=== PATIENT | female | born 1985 | race Two or more races ===

== ENCOUNTER 2024-01-14 06:59 | Emergency (ER) | payer OTHER ==
[~2024-01-14] VITALS: Ht 162.6 cm; Wt 75.7 kg
[2024-01-14] MEDS ORDERED: PRENA1 TRUE CO1 EACH PO (07:10)
[2024-01-14 08:19] LABS: HEMATOCRIT 40.6 % (36.0-45.00); HEMOGLOBIN 14.3 g/dL (12.0-15.00); MEAN CORPUSCULAR HEMOGLOBIN 31.7 pg (27.00-32.0); MEAN CORPUSCULAR HGB CONC 35.3 g/dl (32.0-36.0); PLATELET COUNT 245 K/uL (150-450); RED BLOOD COUNT 4.52 M/uL (4.00-6.00); RED CELL DISTRIBUTION WIDTH 13.2 % (11.5-14.5)
[2024-01-14 08:19] LABS: URINE APPEARANCE Clear; URINE BILIRRUBIN Negative (NEGATIVE); URINE BLOOD Negative; URINE COLOR Yellow; URINE GLUCOSE Negative (NEGATIVE); URINE LEUKOCYTE Negative; URINE NITRATE Negative; URINE PROTEIN Negative (NEGATIVE); URINE UROBILINOGEN 0.2 E.U./dl
[2024-01-14 08:21] LABS: URINE BACTERIA 113.3 uL (0.0-1933); URINE EPITHELIAL CELLS 4.4 uL (0.0-38.8); URINE RBC 13.6 uL (0.0-20.8); URINE WBC 2.4 uL (0.0-23.2)
[2024-01-14 08:49] LABS: INR 0.97; PARTIAL THROMBOPLASTIN TIME 27.1 SECONDS (22.0-34.0); PROTHROMBIN TIME 10.2 SECONDS (9.0-11.5)
[2024-01-14 08:55] LABS: CALCIUM 8.9 mg/dL (8.5-10.1); CREATININE SERUM 0.71 mg/dL (0.55-1.02); GFR 92.13; POTASSIUM 3.93 mEq/L (3.5-5.1)
== END 2024-01-14 13:53 | disposition home or self-care (01) ==
LOC: ER 06:59
PROVIDERS: General Practice
DX: O26.891 Other specified pregnancy related conditions, first trimester (principal); Z3A.01 Less than 8 weeks gestation of pregnancy; R58 Hemorrhage, not elsewhere classified

== ENCOUNTER → 2025-05-16 | Emergency (ER) | payer OTHER ==
[~2025-05-16] VITALS: Ht 165.1 cm; Wt 73.9 kg
[~2025-05-16] MED LIST: KETOROLAC TROMETHAMINE 30 MG VIAL IM STA; KETOROLAC TROMETHAMINE 30 MG VIAL ONE; ORPHENADRINE CITRATE 30 MG/ML AMPUL IM STA; ORPHENADRINE CITRATE 30 MG/ML AMPUL ONE; PRENA1 TRUE CO1 EACH PO
[2025-05-16 17:40] LABS: BASO % 0.6 % (0.1-1.2); EOS # 0.06 (0.04-0.54); EOS % 1.1 % (0.7-7.0); HEMATOCRIT 37.2 % (34.1-44.9); HEMOGLOBIN 13.2 g/dL (11.2-15.7); LYMPH % 28.4 % (19.3-53.1); MEAN CORPUSCULAR HEMOGLOBIN 30.9 pg (25.6-32.2); MONO % 7.6 % (4.7-12.5); NEUT # 3.27 (1.56-6.13); NEUT % 61.9 % (34.0-71.1); PLATELET COUNT 256 K/uL (163-369); RED BLOOD COUNT 4.27 M/uL (3.93-5.22); RED CELL DISTRIBUTION WIDTH 12.1 % (11.6-14.4)
[2025-05-16 17:41] LABS: PH,URINE 7.5 (5.0-8.0); URINE APPEARANCE Clear; URINE BILIRRUBIN Negative (NEGATIVE); URINE BLOOD Negative; URINE COLOR Yellow; URINE GLUCOSE Negative (NEGATIVE); URINE KETONE Negative (NEGATIVE); URINE LEUKOCYTE Negative; URINE NITRATE Negative; URINE PROTEIN Negative (NEGATIVE); URINE UROBILINOGEN 0.2 E.U./dl
[2025-05-16 17:42] LABS: URINE BACTERIA 297.2 uL (0.0-1933); URINE EPITHELIAL CELLS 11.3 uL (0.0-38.8); URINE RBC 4.5 uL (0.0-20.8); URINE WBC 3.9 uL (0.0-23.2)
[2025-05-16 17:43] LABS: TYPE CELLS SQUAMOUS
[2025-05-16 18:35] LABS: ALBUMIN 3.9 gm/dL (3.4-5.0); BILIRUBIN TOTAL 0.48 mg/dL (0.3-1.2); CALCIUM 9.1 mg/dL (8.5-10.1); CREATININE SERUM 0.64 mg/dL (0.55-1.02); GFR 103.31; GLOBULINA 2.7 G/DL (2.4-3.5); POTASSIUM 3.84 mEq/L (3.5-5.1); TOTAL PROTEIN 6.6 gm/dL (6.4-8.2)
== END | disposition home or self-care (01) ==
LOC: ER 12:56
PROVIDERS: General Practice
DX: R10.32 Left lower quadrant pain (principal)